=== PATIENT | female | born 1985 ===

== ENCOUNTER 2020-05-17 10:29 | Inpatient (IN) | payer OTHER ==
[~2020-05-17] VITALS: Ht 165.1 cm; Wt 70.2 kg
--- NOTE | 2020-05-17 10:41 | NUR ---
pt is a 34f bib ems from [facility] complaining of vomiting blood and not feeling well since Thursday. She was seen yesterday in the ER in [place] and had a Hem of 6.8 then. She was not transfused yesterday but was seen again today in the ER in [place] and had a Hemoglobin of 4.9. She is on her 3rd unit of blood transfusion when arriving today with no evidence of any reaction. Pt states she was drinking heavily up until about a year and a half ago but is only drinking occasionaly now. pt on the monitoring specialist, continuous sp02, and cycling vitals. provider at bedside for eval and plan of care. EKG completed, and lab at bedside to draw. call light within reach.
--- NOTE | 2020-05-17 10:53 | NUR ---
REQUESTED MEDS FROM PHARMACY
[2020-05-17] MEDS ORDERED: OCTREOTIDE 500 MCG in SODIUM CHLORIDE 0.9% 99 ML IV PRN (11:00)
[2020-05-17] MEDS ORDERED: PANTOPRAZOLE 40 MG IV IVPush ONE (11:00)
[2020-05-17] MEDS ORDERED: PANTOPRAZOLE 80 MG in SODIUM CHLORIDE 0.9% 100 ML IV SCH (11:00)
[2020-05-17 11:10] LABS: BASOPHILS % (AUTO) 0 % (0-1); EOSINOPHILS % (AUTO) 1 % (1-7); LYMPHOCYTES % (AUTO) 28 % (22-44); MEAN CORPUSCULAR HEMOGLOBIN 24.3 pg (27.0-34.8); MEAN CORPUSCULAR HGB CONC 32.9 g/dL (32.4-35.8); MEAN PLATELET VOLUME 8.7 fL (7.4-10.4); MONOCYTES % (AUTO) 6 % (2-9); NEUTROPHILS % (AUTO) 65 % (42-75); PLATELET COUNT 150 x10^3/uL (130-400); RED BLOOD COUNT 3.46 x10^6/uL (3.82-5.3); RED CELL DISTRIBUTION WIDTH 25.2 % (9.6-15.2)
--- NOTE | 2020-05-17 11:16 | NUR ---
PT COMPLETED HER 3RD UNIT OF BLOOD, NO REACTIONS NOTED. TEMP 99.0
[2020-05-17 11:17] LABS: CHLORIDE 114 mmol/L (98-107)
[2020-05-17 11:21] LABS: INTERNATIONAL NORMALIZED RATIO 1.22 (0.93-1.1)
[2020-05-17 11:23] LABS: ALBUMIN 2.8 g/dL (3.4-5.0); ANION GAP 7 mmol/L (5-15); CALCIUM 7.7 mg/dL (8.5-10.1); CREATININE 0.49 mg/dL (0.55-1.02)
[2020-05-17 11:29] LABS: MD MORPH REVIEW ONLY
[2020-05-17 11:30] LABS: ANISOCYTOSIS 1+; MICROCYTOSIS 1+; POLYCHROMASIA 1+
[2020-05-17 11:31] LABS: TEAR DROPS 1+
[2020-05-17 11:33] LABS: <PLATELET ESTIMATE> DECREASED; LARGE PLATELETS 1+
[2020-05-17 11:39] LABS: TROPONIN I < 0.015 ng/mL (0.000-0.045)
--- NOTE | 2020-05-17 12:12 | NUR ---
RAPID COVID SWAB COLLECTED, WALKED TO LAB.
--- NOTE | 2020-05-17 12:40 | NUR ---
PT RESTING COMFORTABLY IN [facility]. CALL LIGHT WITHIN REACH, NO ADDITIONAL NEEDS AT THIS TIME
[2020-05-17] MEDS ORDERED: PROPOFOL 10 MG/ML, 20ML ONE ×2 (13:19→13:37)
[2020-05-17] MEDS ORDERED: CHLORHEXIDINE 15 ML UDC ONE (13:25)
--- NOTE | 2020-05-17 13:25 | NUR ---
PT TO ENDOSCOPY
--- NOTE | 2020-05-17 13:51 | NUR ---
THIS RN ASSUMES CARE FOR PRIMARY RN LUNCH BREAK, PT NOT IN ROOM.
[2020-05-17] MEDS ORDERED: hydrALAzine 20 MG/ML, 1ML IV PRN (14:00)
[2020-05-17] MEDS ORDERED: PROMETHAZINE 25 MG/ML, 1ML IVPush PRN (14:00)
[2020-05-17] MEDS ORDERED: MIDAZOLAM 1 MG/ML, 2ML IV PRN (14:00)
[2020-05-17] MEDS ORDERED: FENTANYL PF 100 MCG/2ML IV PRN (14:00)
[2020-05-17] MEDS ORDERED: EPHEDRINE 50 MG/ML, 1ML IVPush PRN (14:00)
[2020-05-17] MEDS ORDERED: OXYcodone 5 MG/5 ML ORAL.SOL UDC PO PRN (14:00)
[2020-05-17] MEDS ORDERED: ACETAMINOPHEN 325 MG TABLET PO PRN (14:00)
[2020-05-17] MEDS ORDERED: LABETALOL 5MG/ML, 20ML IV PRN (14:00)
[2020-05-17] MEDS ORDERED: PROMETHAZINE 12.5 MG SUPP PR PRN (14:00)
[2020-05-17] MEDS ORDERED: ONDANSETRON 2MG/ML, 2ML IVPush PRN ×2 (14:00)
[2020-05-17] MEDS ORDERED: DIPHENHYDRAMINE 50 MG/ML, 1ML IVPush PRN (14:00)
[2020-05-17] MEDS ORDERED: HYDROmorphone 1 MG/ML, 1ML INJ IVPush PRN (14:00)
[2020-05-17] MEDS ORDERED: ALBUTEROL SULFATE 2.5 MG/3 ML NPPB PRN (14:00)
[2020-05-17] MEDS ORDERED: MEPERIDINE/PF 25MG/0.5ML IVPush PRN (14:00)
[2020-05-17] MEDS ORDERED: DIAZEPAM 5 MG/ML, 2ML IVPush PRN (14:00)
--- NOTE | 2020-05-17 14:13 | NUR ---
REPORT RECEIVED, CARE ASSUMED. PT CONT TO BE AT ENDOSCOPY SUITE
--- NOTE | 2020-05-17 14:28 | NUR ---
REPORT RECEIVED FROM ENDOSCOPY NURSE. PT TO BE RETURNED TO ROOM.
--- NOTE | 2020-05-17 14:36 | NUR ---
REPORT TO BELGICA SILVERIO
--- NOTE | 2020-05-17 14:41 | NUR ---
PT BACK FROM ENDO, REPORT FROM COLTON SILVERIO. UPDATED VITALS, C D REACTOR OPERATOR, SPO2 AND CYCLING VITALS. CALL LIGHT WITHIN REACH.
[2020-05-17 14:56] LABS: ALBUMIN 2.8 g/dL (3.4-5.0); BILIRUBIN, DIRECT 0.5 mg/dL (0.1-0.2)
[2020-05-17 14:58] LABS: BILIRUBIN,TOTAL 1.5 mg/dL (0.2-1.0); TOTAL PROTEIN 5.7 g/dL (6.4-8.2)
--- NOTE | 2020-05-17 15:13 | NUR ---
PT UP TO COMMODE AND STEADY, AWAITING ROOM UPSTAIRS.
--- NOTE | 2020-05-17 15:28 | NUR ---
REPORT TO LEVY SILVERIO. PT ADMITTED TO ROOM 410
[2020-05-17 15:59] VITALS: BP 123/81
[2020-05-17] MEDS: morphine SULFATE 10 MG/ML, 1ML IVPush PRN ×2 (16:17→21:12)
[2020-05-17] MEDS: CEFTRIAXONE PMX 1GM/50ML 50 ML IV SCH (16:51)
[2020-05-17] MEDS: PANTOPRAZOLE 40 MG IV IVPush SCH (17:18)
[2020-05-17 18:44] LABS: MICROSCOPIC INDICATED
[2020-05-17 19:25] VITALS: BP 124/79
[2020-05-17] MEDS: OCTREOTIDE 500 MCG in SODIUM CHLORIDE 0.9% 99 ML IV SCH (21:01)
[2020-05-18 01:24] VITALS: BP 110/72
[2020-05-18] MEDS: morphine SULFATE 10 MG/ML, 1ML IVPush PRN ×5 (01:27→20:39)
[2020-05-18 06:22] LABS: BASOPHILS % (AUTO) 0 % (0-1); EOSINOPHILS % (AUTO) 2 % (1-7); LYMPHOCYTES % (AUTO) 25 % (22-44); MEAN CORPUSCULAR HEMOGLOBIN 24.3 pg (27.0-34.8); MEAN CORPUSCULAR HGB CONC 32.7 g/dL (32.4-35.8); MEAN PLATELET VOLUME 8.8 fL (7.4-10.4); MONOCYTES % (AUTO) 6 % (2-9); NEUTROPHILS % (AUTO) 67 % (42-75); PLATELET COUNT 144 x10^3/uL (130-400); RED BLOOD COUNT 3.73 x10^6/uL (3.82-5.3); RED CELL DISTRIBUTION WIDTH 24.5 % (9.6-15.2)
[2020-05-18 06:28] LABS: ALBUMIN 2.9 g/dL (3.4-5.0); CHLORIDE 108 mmol/L (98-107)
[2020-05-18 06:38] VITALS: BP 120/83
[2020-05-18 06:42] LABS: ALANINE AMINOTRANSFERASE 18 U/L (12-78); ALKALINE PHOSPHATASE 78 U/L (45-117); ANION GAP 6 mmol/L (5-15); BILIRUBIN,TOTAL 0.9 mg/dL (0.2-1.0); CREATININE 0.51 mg/dL (0.55-1.02); MD SCAN
[2020-05-18] MEDS: OCTREOTIDE 500 MCG in SODIUM CHLORIDE 0.9% 99 ML IV SCH ×2 (06:59→17:38)
[2020-05-18] MEDS: PANTOPRAZOLE 40 MG IV IVPush SCH ×2 (08:48→20:37)
[2020-05-18 12:17] LABS: HCG UR SG 1.011 (1.003-1.030)
[2020-05-18 13:17] VITALS: BP 113/76
[2020-05-18] MEDS ORDERED: OMNIPAQUE 350 MG/ML, 100ML BOTTLE ONE (13:34)
[2020-05-18] MEDS: CEFTRIAXONE PMX 1GM/50ML 50 ML IV SCH (16:15)
[2020-05-18 18:52] VITALS: BP 123/65
[2020-05-18 19:47] VITALS: BP 131/86
[2020-05-19] MEDS: morphine SULFATE 10 MG/ML, 1ML IVPush PRN ×6 (00:52→23:02)
[2020-05-19 00:57] VITALS: BP 117/77
[2020-05-19] MEDS: OCTREOTIDE 500 MCG in SODIUM CHLORIDE 0.9% 99 ML IV SCH ×2 (02:42→13:54)
[2020-05-19] MEDS: PANTOPRAZOLE 40 MG IV IVPush SCH (07:24)
[2020-05-19 07:28] VITALS: BP 111/72
[2020-05-19 08:09] LABS: BASOPHILS % (AUTO) 0 % (0-1); EOSINOPHILS % (AUTO) 3 % (1-7); LYMPHOCYTES % (AUTO) 21 % (22-44); MEAN CORPUSCULAR HEMOGLOBIN 24.1 pg (27.0-34.8); MEAN CORPUSCULAR HGB CONC 32.5 g/dL (32.4-35.8); MEAN PLATELET VOLUME 8.3 fL (7.4-10.4); MONOCYTES % (AUTO) 6 % (2-9); NEUTROPHILS % (AUTO) 70 % (42-75); PLATELET COUNT 157 x10^3/uL (130-400); RED BLOOD COUNT 3.64 x10^6/uL (3.82-5.3)
[2020-05-19 08:22] LABS: ALANINE AMINOTRANSFERASE 20 U/L (12-78); ANION GAP 6 mmol/L (5-15); CALCIUM 8.3 mg/dL (8.5-10.1); CHLORIDE 106 mmol/L (98-107)
[2020-05-19 08:25] LABS: ALKALINE PHOSPHATASE 80 U/L (45-117); CREATININE 0.61 mg/dL (0.55-1.02); TOTAL PROTEIN 6.4 g/dL (6.4-8.2)
[2020-05-19 08:48] LABS: MD SCAN
[2020-05-19 13:58] VITALS: BP 114/79
[2020-05-19] MEDS: CEFTRIAXONE PMX 1GM/50ML 50 ML IV SCH (16:25)
[2020-05-19 20:40] VITALS: BP 112/75
[2020-05-19] MEDS: ESOMEPRAZOLE 40 MG IV IVPush SCH (20:43)
[2020-05-19] MEDS: PROPRANOLOL 10 MG TABLET PO SCH (20:43)
[2020-05-19] MEDS: LACTULOSE 20 GM/30 ML UDC PO SCH (20:44)
[2020-05-19] MEDS ORDERED: PANTOPRAZOLE 40MG TABLET PO SCH (21:00)
[2020-05-19 23:07] VITALS: BP 99/66
[2020-05-20 02:00] VITALS: BP 99/66
[2020-05-20] MEDS: morphine SULFATE 10 MG/ML, 1ML IVPush PRN (04:54)
[2020-05-20] MEDS: PROPRANOLOL 10 MG TABLET PO SCH ×2 (04:54→14:41)
[2020-05-20 05:22] LABS: ALANINE AMINOTRANSFERASE 17 U/L (12-78); ALBUMIN 2.9 g/dL (3.4-5.0); ANION GAP 10 mmol/L (5-15); CALCIUM 8.3 mg/dL (8.5-10.1); CHLORIDE 108 mmol/L (98-107); CREATININE 0.65 mg/dL (0.55-1.02)
[2020-05-20 05:25] LABS: ALKALINE PHOSPHATASE 87 U/L (45-117); BILIRUBIN,TOTAL 0.9 mg/dL (0.2-1.0); TOTAL PROTEIN 6.5 g/dL (6.4-8.2)
[2020-05-20 06:01] LABS: BASOPHILS % (AUTO) 0 % (0-1); EOSINOPHILS % (AUTO) 4 % (1-7); LYMPHOCYTES % (AUTO) 17 % (22-44); MEAN CORPUSCULAR HEMOGLOBIN 24.4 pg (27.0-34.8); MEAN CORPUSCULAR HGB CONC 32.5 g/dL (32.4-35.8); MEAN PLATELET VOLUME 8.4 fL (7.4-10.4); MONOCYTES % (AUTO) 7 % (2-9); NEUTROPHILS % (AUTO) 72 % (42-75); PLATELET COUNT 189 x10^3/uL (130-400); RED BLOOD COUNT 3.73 x10^6/uL (3.82-5.3); RED CELL DISTRIBUTION WIDTH 25.8 % (9.6-15.2)
[2020-05-20] MEDS ORDERED: MAGNESIUM SULFATE PMX 2GM/50ML 50 ML IV ONE (07:00)
[2020-05-20 07:08] LABS: MD NO
[2020-05-20 07:28] VITALS: BP 92/57
[2020-05-20] MEDS: ESOMEPRAZOLE 40 MG IV IVPush SCH (08:21)
[2020-05-20] MEDS: LACTULOSE 20 GM/30 ML UDC PO SCH (08:21)
[2020-05-20] MEDS ORDERED: RIFAXIMIN 550 MG TABLET PO SCH (09:00)
[2020-05-20] MEDS ORDERED: RIFA550T4 PO (11:04)
[2020-05-20] MEDS ORDERED: OMEP-110 PO (11:04)
[2020-05-20] MEDS ORDERED: PROP10TA16 PO (11:04)
[2020-05-20] MEDS ORDERED: LACT20SO13 PO (11:04)
[2020-05-22 17:12] LABS: ANA SCREEN NEGATIVE (Negative)
== END 2020-05-20 14:43 | disposition home or self-care (01) | DRG 368 ==
LOC: ED 12:12 → EDIP 12:30 → 4WST 15:43
PROVIDERS: ADMIT Internal Medicine; ATTEND Internal Medicine
PROC: 06L38CZ Occlusion of Esophageal Vein with Extraluminal Device, Via Natural or Artificial Opening Endoscopic (ICD-10-PCS; principal; 2020-05-17 15:15)
DX: I85.11 Secondary esophageal varices with bleeding (principal); G93.41 Metabolic encephalopathy; D62 Acute posthemorrhagic anemia; K76.6 Portal hypertension; J98.11 Atelectasis; I86.4 Gastric varices; K70.10 Alcoholic hepatitis without ascites; K25.9 Gastric ulcer, unspecified as acute or chronic, without hemorrhage or perforation; E66.9 Obesity, unspecified; K29.70 Gastritis, unspecified, without bleeding; K70.40 Alcoholic hepatic failure without coma; Z20.822 Contact with and (suspected) exposure to COVID-19; M10.9 Gout, unspecified; K31.89 Other diseases of stomach and duodenum; Z87.891 Personal history of nicotine dependence; Z68.25 Body mass index [BMI] 25.0-25.9, adult
CPT/HCPCS: 36415; 71045; 74177; 80048; 80053; 80076; 81001; 81025; 82040; 82105; 82140; 82728; 82784; 83516; 83540; 83550; 83605; 83735; 84100; 84443; 84484; 85018; 85025; 85610; 86038; 86704; 86706; 86803; 86850; 86900; 87086; 87340; 87635; 88305; 93005; 96374; 99291; G0378; J0696; J2354; J2704; Q9967; C9113; J2270; J3475